=== PATIENT | male | born 1960 | race Caucasian/White ===

== ENCOUNTER 2024-01-07 08:35 | Emergency (ER) | payer SELFPAY ==
[~2024-01-07] VITALS: Ht 177.8 cm; Wt 82.0 kg
[2024-01-07 08:47] VITALS: O2SAT 97
[2024-01-07] MEDS: ACETAMINOPHEN 325MG TABLET PO ONE (10:03)
[2024-01-07] MEDS ORDERED: TOPUD PO (13:18)
[2024-01-07 13:35] VITALS: BP 128/78; PULSE 115; RESP 16; TEMP 98.3
== END 2024-01-07 13:36 | disposition home or self-care (01) ==
LOC: ER 09:16
DX: S00.81XA Abrasion of other part of head, initial encounter (principal); S22.39XA Fracture of one rib, unspecified side, initial encounter for closed fracture
CPT/HCPCS: 74176; 99284; Z7610 ×2